=== PATIENT | female | born 1960 | race African-American/Black ===

== ENCOUNTER 2018-01-19 18:53 | Emergency (ER) | payer OTHER ==
[~2018-01-19] VITALS: Ht 160 cm; Wt 67.0 kg
[~2018-01-19 18:53] MED LIST: BENADRYL25 MG PO; LISINOPRIL5 MG PO; NOHOMEMEDICATIONS; PREDNISONE 20 M20 MG PO; PREDNISONE 5 MG5 MG PO; VALACYCLOVIR500 MG PO; ZANTAC 7575 MG PO
[2018-01-19] MEDS ORDERED: CHOLESTEROL PILL (19:07)
[2018-01-19 20:05] LABS: ABSOLUTE BASOPHILS 0.1 thou/uL (0.0-0.2); ABSOLUTE EOSINOPHILS 0.2 thou/uL (0.0-0.7); ABSOLUTE MONOCYTES 0.5 thou/uL (0.0-1.2); ABSOLUTE NEUTROPHILS 5.1 thou/uL (1.6-8.1); EOSINOPHILS 2.6 %; HEMOGLOBIN 12.7 gm/dL (12.0-15.0); LYMPHOCYTES 25.1 %; MCH 26.9 pg (26.0-34.0); MCHC 32.5 g/dL (28.0-37.0); MCV 82.8 fL (80.0-100.0); NUCLEATED RBCS 0 /100WBC; PLATELET COUNT* 222 thou/uL (150-400); POLYS 64.3 %; RBC 4.71 mil/uL (4.20-5.00); RDW-CV 15.5 % (10.5-14.5); WBC 7.9 thou/uL (4.0-11.0)
[2018-01-19 20:14] LABS: ANION GAP 6 mmol/L (7-16); BUN 16 mg/dL (7-18); CALCIUM 8.8 mg/dL (8.5-10.1); CHLORIDE 106 mmol/L (98-107); CO2 31 mmol/L (21-32); GLUCOSE 100 mg/dL (70-99); POTASSIUM 3.4 mmol/L (3.5-5.1); SODIUM 143 mmol/L (136-145)
[2018-01-19 20:22] LABS: ALBUMIN 3.7 g/dL (3.4-5.0); ALKALINE PHOSPHATASE 85 U/L (46-116); MAGNESIUM 1.8 mg/dL (1.8-2.4); SGOT 17 U/L (15-37); SGPT 18 U/L (30-65); TOTAL BILIRUBIN 0.3 mg/dL (<0.1-1.0); TOTAL PROTEIN 7.1 g/dL (6.4-8.2); TROPONIN-I LEVEL <0.06 ng/mL (<0.06)
[2018-01-19 21:28] LABS: URINE BILIRUBIN NEGATIVE (Negative); URINE BLOOD NEGATIVE (Negative); URINE CLARITY CLEAR; URINE COLOR STRAW; URINE GLUCOSE-RANDOM NEGATIVE (Negative); URINE KETONES NEGATIVE (Negative); URINE LEUKOCYTES-REFLEX TRACE (Negative); URINE NITRITE-REFLEX NEGATIVE (Negative); URINE PROTEIN NEGATIVE (Negative); URINE SPECIFIC GRAVITY <= 1.005 (1.005-1.030); URINE UROBILINOGEN 0.2 E.U./dl (0.2-1.0)
[2018-01-19] MEDS ORDERED: CYCLOBENZAPRINE5 MG PO (21:34)
[2018-01-19] MEDS ORDERED: MEDROLDOSEPACK PO (21:34)
[2018-01-19 21:38] LABS: SQUAMOUS 0-3 Few /LPF (0-3)
[2018-01-19 21:39] LABS: BACTERIA-REFLEX None Seen /HPF (None Seen); CASTS None Seen /LPF (None Seen); CRYSTALS None Seen /LPF (None Seen); MUCUS None Seen strn/LPF (None Seen); URINE RBC None Seen /HPF (0-2); URINE WBC-REFLEX 0-5 Rare /HPF (0-5)
[2018-01-19 22:13] VITALS: BP 168/89
--- NOTE | 2018-01-20 15:37 | EKG ---
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 : 1960 Requested By: Dyana Keller Order Number: [id number] MD: Shan Akers Measurements Intervals [place] Rate: 58 P: 61 [place]: 155 QRS: 28 QRSD: 83 T: -14 QT: 444 QTc: 437 Interpretive Statements Sinus rhythm RSR' in V1 or V2, right VCD or RVH Borderline T abnormalities, inferior leads Compared to ECG 01/04/2017 18:41:45 Atrial abnormality no longer present T-wave abnormality still present Electronically Signed On 01-20-2018 15:37:33 PHOTOGRAPHER MOTION PICTURE by Shan Akers [email or web address] <ELECTRONICALLY SIGNED> By: Shan Akers MD, FACC 01/20/18 1537 37 37 Shan Akers MD, [facility] /EPI
== END 2018-01-19 22:14 | disposition home or self-care (01) ==
LOC: M.ERS 18:53
PROVIDERS: Personal Emergency Response Attendant
DX: M48.02 Spinal stenosis, cervical region (principal); I10 Essential (primary) hypertension